=== PATIENT | female | born 1955 | race Caucasian/White ===

== ENCOUNTER 2017-09-05 08:52 | Outpatient (CLI) | payer MEDICARE ==
[2017-09-05] MEDS ORDERED: ISOVUE-370 76%-LOCM 1 ML ONE (11:07)
== END 2017-09-05 08:53 | disposition home or self-care (01) ==
LOC: BICCT 08:52
PROVIDERS: ATTEND Internal Medicine Cardiovascular Disease
DX: I65.01 Occlusion and stenosis of right vertebral artery (principal); I65.21 Occlusion and stenosis of right carotid artery; I70.8 Atherosclerosis of other arteries; I25.10 Atherosclerotic heart disease of native coronary artery without angina pectoris
CPT/HCPCS: 70498; 82565

== ENCOUNTER 2017-10-11 11:53 | Outpatient (CLI) | payer MEDICARE, MEDICAID ==
[2017-10-11] MEDS ORDERED: ISOVUE-370 76%-LOCM 1 ML ONE (16:39)
== END 2017-10-11 11:54 | disposition home or self-care (01) ==
LOC: BICCT 11:53
PROVIDERS: ATTEND Internal Medicine Cardiovascular Disease
DX: I70.213 Atherosclerosis of native arteries of extremities with intermittent claudication, bilateral legs (principal); I25.10 Atherosclerotic heart disease of native coronary artery without angina pectoris; K55.069 Acute infarction of intestine, part and extent unspecified; I70.1 Atherosclerosis of renal artery; I70.0 Atherosclerosis of aorta; I77.9 Disorder of arteries and arterioles, unspecified
CPT/HCPCS: 75635; 82565

== ENCOUNTER 2018-05-06 19:07 | Emergency (ER) | payer MEDICARE, MEDICAID ==
[~2018-05-06 19:07] MED LIST: ISOVUE-370 76%-LOCM 1 ML ONE
--- NOTE | 2018-05-06 20:30 | RAD ---
PORTABLE CHEST 05/06/18 PROVIDED CLINICAL HISTORY: Dyspnea. FINDINGS: Comparison 07/26/16. The cardiac and mediastinal silhouette is unchanged in appearance. Vascular calcification involves th e aortic arch. Right subclavian cardiac pacing device is again demonstrated with lead tips in similar positions. No focal consolidation, pleural fluid or pneumothorax apparent. IMPRESSION: No evidence for acute cardiopulmonary process. POS: DIANA
[2018-05-06 20:39] LABS: #Basophils 0.1 thou/uL (0.0-0.2); #Eosinphils 0.2 thou/uL (0.0-0.7); #Lymphocytes 2.7 thou/uL (1.20-3.40); #Monocytes 0.7 thou/uL (0.11-0.59); #Neutrophils 3.8 thou/uL (1.40-6.50); %Basophils 0.8 % (0.0-1.0); %Eosinophils 3.2 % (0.0-10.0); %Lymphocytes 35.9 % (21.0-51.0); %Monocytes 9.6 % (0.0-10.0); %Neutrophils 50.6 % (42.0-75.0); Hemoglobin 14.4 g/dL (12.0-16.0); Mean Corpuscular HGB CONC 33.6 g/dL (32.0-36.0); Mean Corpuscular Hemoglobin 32.2 pg (27.0-31.0); Mean Corpuscular Volume 95.9 fL (78.0-98.0); Mean Platelet Volume 6.3 fL (7.4-10.4); Platelet Count 176 thou/uL (130-400); RBC Distribution Width 11.8 % (11.5-14.5); Red Blood Cell (RBC) Count 4.46 mill/uL (4.20-5.40); White Blood Cell (WBC) Count 7.5 thou/uL (4.8-10.8)
[2018-05-06 20:52] LABS: ALT (SGPT) 60 U/L (8-55); AST (SGOT) 64 U/L (5-34); Albumin 3.4 g/dL (3.5-5.0); Alkaline Phosphatase 129 U/L (40-150); Anion Gap 8 mmol/L (10-20); BUN (Urea Nitrogen) 9 mg/dL (9.8-20.1); Bilirubin, Total 0.6 mg/dL (0.2-1.2); Calc. Creatinine Clearance 0 mL/min (70-130); Calcium 9.3 mg/dL (7.8-10.44); Carbon Dioxide 27 mmol/L (22-29); Chloride 106 mmol/L (98-107); Estimated GFR-MDRD 73; Globulin 4.2 g/dL (2.4-3.5); Glucose 99 mg/dL (70-105); Potassium 4.3 mmol/L (3.5-5.1); Protein, Total 7.6 g/dL (6.0-8.3); Sodium 137 mmol/L (136-145)
--- NOTE | 2018-05-06 21:24 | ULT ---
BILATERAL LOWER EXTREMITY VENOUS DOPPLER 05/06/18 PROVIDED CLINICAL HISTORY: Bilateral lower extremity pain. FINDINGS: Jean scale and color doppler sonography with spectral analysis was performed of the bilateral common femoral, femoral, popliteal, posterior tibial, greater saphenous and profunda femoral veins, demonstr ating a normal sonographic appearance to each. IMPRESSION: No sonographic evidence for lower extremity deep venous thrombosis. POS: EUGENIE
--- NOTE | 2018-05-06 21:35 | CT ---
CT PULMONARY ANGIOGRAM WITH IV CONTRAST AND 3D MIP RECONSTRUCTIONS 05/06/18 PROVIDED CLINICAL HISTORY: Shortness of breath and pain. FINDINGS: There is no evidence for central or segmental pulmonary embolus. Coronary stent material is seen. The lungs are free of significant opacity. The airway is patent and of normal caliber. No pleural fluid or pneumothorax apparent. No evidence for thoracic lymph node enlargement. The visualized portions of the upper abdomen demonstrate no acute process. Gallstones are seen. The osseous structures demonstr ate no concerning lytic or blastic lesions. IMPRESSION: 1. No evidence for central or segmental pulmonary embolus. 2. Cholelithiasis. POS: DIANA
== END 2018-05-06 22:40 | disposition home or self-care (01) ==
LOC: ERS 19:07
DX: R10.31 Right lower quadrant pain (principal); R10.32 Left lower quadrant pain; R06.00 Dyspnea, unspecified; I10 Essential (primary) hypertension; F17.210 Nicotine dependence, cigarettes, uncomplicated
CPT/HCPCS: 36415; 71045; 71275; 80053; 83880; 84484; 85025; 93005; 93970

== ENCOUNTER 2018-09-26 13:00 | Inpatient (IN) | payer MEDICARE, MEDICAID ==
[2018-09-26 15:50] LABS: Hemoglobin 14.7 g/dL (12.0-16.0); Mean Corpuscular HGB CONC 33.5 g/dL (32.0-36.0); Mean Corpuscular Hemoglobin 32.4 pg (27.0-31.0); Mean Corpuscular Volume 96.5 fL (78.0-98.0); Platelet Count 243 thou/uL (130-400); Red Blood Cell (RBC) Count 4.54 mill/uL (4.20-5.40); White Blood Cell (WBC) Count 9.1 thou/uL (4.8-10.8)
[2018-09-26 15:55] LABS: INR-International Normal Ratio 1.1; PTT 31.5 SEC (22.9-36.1); Prothrombin Time 14.1 SEC (12.0-14.7)
[2018-09-26 16:09] LABS: Anion Gap 14 mmol/L (10-20); BUN (Urea Nitrogen) 7 mg/dL (9.8-20.1); Calc. Creatinine Clearance 0 mL/min (70-130); Calcium 9.4 mg/dL (7.8-10.44); Carbon Dioxide 19 mmol/L (23-31); Chloride 105 mmol/L (98-107); Estimated GFR-MDRD 71; Glucose 78 mg/dL (80-115); Sodium 134 mmol/L (136-145)
[2018-09-29] MEDS ORDERED: Fentanyl 250 MCG/5 ML VIAL ONE (06:53)
[2018-09-29] MEDS ORDERED: Heparin 5,000 UNITS/ML VIAL ONE (06:58)
[2018-09-29] MEDS ORDERED: Protamine Sulfate 50 MG/5 ML VIAL ONE (06:58)
[2018-09-29] MEDS ORDERED: Midazolam HCl 2 mg/2 ml Vial ONE (07:12)
[2018-09-29] MEDS ORDERED: Fentanyl 100 MCG/2 ML VIAL ONE ×2 (10:50→11:30)
[2018-09-29] MEDS ORDERED: Promethazine HCl 25 MG/ML VIAL IM PRN ×2 (10:53→12:12)
[2018-09-29] MEDS ORDERED: Ondansetron HCl/PF 4 MG/2 ML Vial IVP PRN (10:53)
[2018-09-29] MEDS ORDERED: Promethazine HCl 25 MG/ML VIAL SLOW IVP PRN (10:53)
[2018-09-29] MEDS ORDERED: Nitroglycerin 50 MG/250 ML BOT 0 ML ONE (11:12)
[2018-09-29] MEDS ORDERED: hydrALAZINE 20 MG/ML VIAL ONE (11:15)
[2018-09-29] MEDS ORDERED: Ondansetron PF 4 MG/2 ML Vial IVP PRN (12:12)
[2018-09-29] MEDS ORDERED: D5 1/2 NS w/20 mEq KCL 1,000 ML IV SCH (12:12)
[2018-09-29] MEDS ORDERED: Promethazine HCl 25 MG/ML VIAL PR PRN (12:12)
[2018-09-29] MEDS ORDERED: Phenylephrine 10 MG/NS 250 ML 250 ML IVPB PRN (12:12)
[2018-09-29 12:14] VITALS: BMI 33.0
[2018-09-29] MEDS ORDERED: Acetaminophen 325 MG TAB PO PRN (12:15)
[2018-09-29] MEDS: Fentanyl 100 MCG/2 ML VIAL SLOW IVP PRN ×2 (13:07→20:17)
[2018-09-29] MEDS: Nitroglycerin 50 MG/250 ML BOT 250 ML IVPB PRN ×2 (13:13→22:03)
--- NOTE | 2018-09-29 15:26 | OP ---
DATE OF PROCEDURE: 09/29/2018 PREOPERATIVE DIAGNOSIS: Peripheral vascular disease with bilateral lower extremity rest pain. POSTOPERATIVE DIAGNOSIS: Peripheral vascular disease with bilateral lower extremity rest pain. PROCEDURE PERFORMED: Right common femoral to above knee popliteal artery bypass utilizing endoscopically harvested in situ greater saphenous vein. ANESTHESIA: General endotracheal - Dr. Ari Huynh. ESTIMATED BLOOD LOSS: Less than 100. DESCRIPTION OF PROCEDURE: After informed consent was obtained, the patient was brought to the operating room and placed supine position on the operating room table. Appropriate central line was placed, and general endotracheal anesthesia was induced. The right leg was prepped and draped in the usual sterile fashion. Using ultrasound, the greater saphenous vein was localized at the knee. Endoscopic harvesting technique was used to harvest the vein from groin down to mid calf. At this point, the vein divided, it was too small to be utilized. The vein was divided distally. A skin incision was made in the groin and common femoral artery was dissected free. The common profunda and superficial femoral arteries were circumferentially dissected to allow for clamping. The greater saphenous vein was then divided at the fossa ovalis and withdrawn back through the incision. The vein was then prepared for anastomosis. The branches were divided. The valves were then lysed. A skin incision was made at Ez's canal and popliteal artery, dissected free from surrounding tissues. The vein was then tunneled from our knee incision to the groin incision. The vein was flushed and easily flushed. The patient was systemically heparinized. An arteriotomy was performed in the common femoral artery just at the bifurcation. There was good antegrade flow through the common femoral artery and backbleeding from the profunda femoris. The saphenous vein was anastomosed to the common femoral artery with running 6-0 Prolene suture. Upon release of clamps, there was pulsatile flow through the graft. The graft was flushed with heparinized saline and clamped. The popliteal artery was clamped proximally and distally and an incision was made allowing for anastomosis. Saphenous vein was anastomosed to the popliteal artery with running 6-0 Prolene suture. Upon release of clamps, there was good pulsatile flow through the graft. Doppler signal was present both within the graft and the distal popliteal artery. There was good posterior tibial artery Doppler signal. The wounds were copiously irrigated. There was good hemostasis. Therefore, we did not reverse our heparin. The incisions were then closed in layers and Dermabond applied to the skin. The patient tolerated the procedure well, was awakened, extubated, and transferred to the recovery room in stable condition. Job ID: [id number]
[2018-09-29] MEDS: CEFAZOLIN 2 GM in Premix Bag 1 BAG IVPB SCH ×2 (15:39→22:39)
[2018-09-29] MEDS ORDERED: Lidocaine 1% PF 5 ML VIAL ONE (16:32)
[2018-09-29] MEDS ORDERED: PROPOFOL 200 MG/20 ML VIAL ONE (16:32)
[2018-09-29] MEDS ORDERED: Ondansetron PF 4 MG/2 ML Vial ONE (16:32)
[2018-09-29] MEDS ORDERED: Glycopyrrolate 0.2 MG/ML 5 ML SYRINGE ONE (16:32)
[2018-09-29] MEDS ORDERED: Dexamethasone 20 MG/5 ML VIAL ONE (16:32)
[2018-09-29] MEDS ORDERED: Vecuronium 10 MG VIAL ONE (16:32)
[2018-09-29] MEDS ORDERED: hydrALAZINE 20 MG/ML VIAL SLOW IVP PRN (17:10)
[2018-09-29] MEDS: traMADol HCl 50 MG TAB PO PRN (17:14)
--- NOTE | 2018-09-29 17:21 | CON ---
DATE OF CONSULTATION: HISTORY OF PRESENT ILLNESS: Monica Dawkins is a pleasant 63-year-old female. She has been seen here in the past, but has not been admitted since 2016. In September of 2015, she underwent cardiac catheterization, which showed three- vessel coronary artery disease with severe stenosis of the LAD. She had angioplasty and stent placed by Dr. Bhatti. The second obtuse marginal branch of the left circumflex, vessel was small. She had 50% right coronary stenosis. At that time three years ago, it was noted that she had claudication and severe peripheral vascular disease. The past records states that she has obstructive lung disease, but she says she has never been told that. She did quit smoking at the beginning of the year. She has undergone a right common femoral to above the knee popliteal artery bypass using greater saphenous vein. She says she is doing well at this time and has no complaints. PAST MEDICAL HISTORY: Remarkable for; 1. Coronary artery disease with an VA in 2007. 2. History of hypertension. 3. History of CVA x2 in the past. 4. History of pacemaker. 5. History of an appendectomy. 6. History of hip surgery. SOCIAL HISTORY: She smoked a pack a day for most of her adult life. As mentioned, she quit at the beginning of the year. She is not a drinker. She does not use drugs. FAMILY HISTORY: Positive for vascular disease. ALLERGIES: SHE HAS NO REPORTED DRUG ALLERGIES. REVIEW OF SYSTEMS: A 10-point review of systems otherwise negative. PHYSICAL EXAMINATION: GENERAL: She is in no distress. VITAL SIGNS: Blood pressure is 161/80, heart rate is 61, respiratory rate is 15 , and oximetry is 95. HEENT: Pupils are equal. Sclerae are anicteric. Extraocular movements are intact. NECK: Supple. No lymphadenopathy. LUNGS: Clear. HEART: Regular rhythm. S1 and S2 normal. ABDOMEN: Soft and nontender. EXTREMITIES: Without clubbing, cyanosis, or edema. Her feet are warm. LABORATORY DATA: White count 9.1 on the and hemoglobin was 14.7. There is no lab today. Electrolytes were unremarkable on the . IMPRESSION AND PLAN: 1. Status post femoral-popliteal bypass, clinically stable. 2. History of coronary artery disease with a left anterior descending stent in place, obtuse marginal diffuse disease and the 50% right coronary lesion on cardiac catheterization in 2016. 3. Long history of tobacco use, but no PFTs in the records documenting chronic obstructive pulmonary disease. 4. History of peripheral vascular disease and coronary artery disease with a myocardial infarction in the past and two strokes in the past. 5. History of hypertension. 6. History of pacemaker. She appears to be stable at this time. Spirometry could be done while she is here, once she is ambulatory. I will be happy to follow the other physicians caring for her. TIME SPENT: This is a 50-minute consult, 50% of the time spent on the unit coordinating care. Job ID: [id number] MTDD
[2018-09-29] MEDS: Ketorolac Tromethamine 30 MG/ML VIAL IVP SCH (18:28)
[2018-09-29] MEDS: hydrALAZINE 20 MG/ML VIAL SLOW IVP PRN (18:28)
[2018-09-29] MEDS: Acetaminophen 325 MG TAB PO PRN (19:15)
[2018-09-29] MEDS ORDERED: Carvedilol 3.125 MG TAB PO SCH (21:00)
[2018-09-29] MEDS ORDERED: Lisinopril 5 MG TAB PO SCH (21:00)
[2018-09-29] MEDS: Atorvastatin Calcium 40 MG TAB PO SCH (21:37)
[2018-09-29] MEDS ORDERED: Sodium Chloride 0.45% 500 ML IV SCH (23:45)
[2018-09-30] MEDS: Ketorolac Tromethamine 30 MG/ML VIAL IVP SCH ×4 (00:02→18:12)
[2018-09-30] MEDS ORDERED: Sodium Chloride 0.45% 1,000 ML IV SCH (01:45)
[2018-09-30] MEDS: Nitroglycerin 50 MG/250 ML BOT 250 ML IVPB PRN (02:30)
[2018-09-30] MEDS: hydrALAZINE 20 MG/ML VIAL SLOW IVP PRN ×2 (03:50→13:05)
[2018-09-30] MEDS: CEFAZOLIN 2 GM in Premix Bag 1 BAG IVPB SCH (06:48)
[2018-09-30] MEDS: Carvedilol 6.25 MG TAB PO SCH ×2 (07:33→20:38)
[2018-09-30] MEDS: Aspirin Chewable 81 MG TAB PO SCH (07:33)
[2018-09-30] MEDS: traMADol HCl 50 MG TAB PO PRN (07:34)
[2018-09-30] MEDS: Clopidogrel Bisulfate 75 MG TAB PO SCH (07:34)
--- NOTE | 2018-09-30 17:58 | PRG ---
DATE OF SERVICE: 09/30/2018 SUBJECTIVE: Ms. Dawkins is in no distress. She has no complaints. She says her leg feels fine. OBJECTIVE: VITAL SIGNS: She is afebrile. Blood pressure 135/73, heart rate 63, respiratory rate 18, oximetry is 95%. LUNGS: Clear. HEART: Regular rhythm. S1 and S2 normal. ABDOMEN: Soft and nontender. EXTREMITIES: Feet are warm. IMPRESSION: 1. Status post femoral-popliteal bypass, clinically stable. 2. History of coronary artery disease. 3. History of tobacco use with no documentation of proven chronic obstructive pulmonary disease, that is clinically stable. 4. Hypertension. 5. History of pacemaker. Hopefully, she will be granted to move out of Critical Care Unit to go home for too long. Job ID: [id number]
[2018-09-30] MEDS: Atorvastatin Calcium 40 MG TAB PO SCH (20:38)
[2018-09-30] MEDS: Acetaminophen 325 MG TAB PO PRN (20:47)
[2018-09-30] MEDS ORDERED: Lisinopril 10 MG TAB PO SCH (21:00)
[2018-10-01] MEDS: Ketorolac Tromethamine 30 MG/ML VIAL IVP SCH ×4 (00:28→17:37)
[2018-10-01] MEDS: traMADol HCl 50 MG TAB PO PRN ×2 (05:10→14:32)
[2018-10-01] MEDS: Aspirin Chewable 81 MG TAB PO SCH (08:10)
[2018-10-01] MEDS: Carvedilol 6.25 MG TAB PO SCH (08:11)
[2018-10-01] MEDS: Clopidogrel Bisulfate 75 MG TAB PO SCH (08:11)
[2018-10-01 14:23] VITALS: BP 134/77
[2018-10-01 17:04] VITALS: TEMP 97.9
--- NOTE | 2018-10-01 18:47 | PRG ---
DATE OF SERVICE: 10/01/2018 SUBJECTIVE: Ms. Dawkins says she is feeling well. She says she might be going home today. OBJECTIVE: VITAL SIGNS: She is afebrile. Blood pressure 143/82, heart rate 61, respiratory rate is 19. Intake and outputs, positive 330. LUNGS: Clear. HEART: Regular rhythm. ABDOMEN: Soft and nontender. EXTREMITIES: Without clubbing, cyanosis, or edema. IMPRESSION: 1. Status post femoral-popliteal bypass. 2. Long history of tobacco use. No clinical evidence of chronic obstructive pulmonary disease. I will be happy to see her in the future. Given that she is having no respiratory issues, there is no reason for me to see her as an outpatient in the near future. If she has a repeat hospitalization, I will be happy to see her. Job ID: [id number]
--- NOTE | 2018-10-02 11:34 | DIS ---
DATE OF ADMISSION: 09/29/2018 DATE OF DISCHARGE: 10/01/2018 DIAGNOSIS: Peripheral vascular disease. PROCEDURE: Right common femoral to above knee popliteal in situ vein bypass. DESCRIPTION OF HOSPITAL STAY: Ms. Dawkins had rest pain in the right foot. She underwent a right femoral to above knee popliteal artery bypass utilizing in situ greater saphenous vein. She tolerated procedure well. Her pain is completely resolved. She is currently walking without difficulty or claudication. She will be discharged to home to follow up with me in 2 weeks. DISCHARGE MEDICATIONS: Unchanged from her hospital admission. Job ID: [id number]
== END 2018-10-01 18:03 | disposition home or self-care (01) | DRG 254 ==
LOC: SURG A 09-29 05:58 → CCU 09-29 11:56
PROVIDERS: ADMIT Thoracic Surgery (Cardiothoracic Vascular Surgery); ATTEND Thoracic Surgery (Cardiothoracic Vascular Surgery)
PROC: 041K09L Bypass Right Femoral Artery to Popliteal Artery with Autologous Venous Tissue, Open Approach (ICD-10-PCS; principal; 2018-09-29)
PROC: 06BP0ZZ Excision of Right Saphenous Vein, Open Approach (ICD-10-PCS; 2018-09-29)
DX: I73.9 Peripheral vascular disease, unspecified (principal); J44.9 Chronic obstructive pulmonary disease, unspecified; I25.10 Atherosclerotic heart disease of native coronary artery without angina pectoris; I25.2 Old myocardial infarction; Z86.73 Personal history of transient ischemic attack (TIA), and cerebral infarction without residual deficits; Z95.0 Presence of cardiac pacemaker; Z90.49 Acquired absence of other specified parts of digestive tract; Z87.891 Personal history of nicotine dependence
CPT/HCPCS: 36415; 36416; 80048; 85027; 85610; 85730; 86850; 86900; 86901; 94640; J0360; J0690; J1100; J1642; J1644; J1885; J2001; J2250; J2405; J2704; J2720; J3010; J7620

== ENCOUNTER 2018-12-15 12:00 | Inpatient (IN) | payer MEDICARE, MEDICAID ==
[2018-12-16] MEDS ORDERED: ceFAZolin Sodium (SDC) 2 GM/100 ML BAG ONE ×2 (06:12→16:41)
[2018-12-16] MEDS ORDERED: Protamine Sulfate 50 MG/5 ML VIAL ONE (06:29)
[2018-12-16] MEDS ORDERED: Heparin 5,000 UNITS/ML VIAL ONE (06:29)
[2018-12-16] MEDS ORDERED: Fentanyl 100 MCG/2 ML VIAL ONE ×4 (06:34→13:12)
[2018-12-16] MEDS ORDERED: Midazolam HCl 2 mg/2 ml Vial ONE (06:34)
[2018-12-16] MEDS ORDERED: Ondansetron HCl/PF 4 MG/2 ML Vial IVP PRN (09:55)
--- NOTE | 2018-12-16 10:19 | OP ---
DATE OF PROCEDURE: 12/16/2018 PREOPERATIVE DIAGNOSIS: Peripheral vascular disease. POSTOPERATIVE DIAGNOSIS: Peripheral vascular disease. PROCEDURE PERFORMED: Left femoral to above knee popliteal artery bypass utilizing 8 mm ringed [place]. ANESTHESIA: General endotracheal. ESTIMATED BLOOD LOSS: 500. DESCRIPTION OF PROCEDURE: After consent was obtained, the patient was brought to the operating room, placed in supine position on the operating room table. Appropriate central line and monitors were placed, and general endotracheal anesthesia was induced. Left leg was prepped and draped in usual sterile fashion. A suprainguinal crease incision was made transversely. This was dissected down to the common femoral artery. Common femoral and profunda branches were carefully dissected free from the surrounding tissues. The above-knee popliteal artery was then exposed. Her vein had been deemed inadequate on ultrasound preoperatively. An 8 mm tunneler was passed from knee to groin and the graft tunneled. The patient was given 7500 units of heparin. After 3 minutes, common profunda and superficial femoral arteries were clamped and an incision was made on the common femoral artery. Graft was anastomosed to common femoral artery with running 5-0 Prolene suture. On release of clamps, there was good antegrade flow through the graft in a pulsatile fashion. The graft was clamped and flushed with heparinized saline. The graft was then sewn to the above-knee popliteal artery with running 5-0 Prolene suture. On re-establishment of flow, there was excellent Doppler signal distal to the graft that abated with graft occlusion. Protamine was administered. Hemostasis was ensured. Wounds were closed in layers. Dermabond applied to skin. The patient was then awakened, extubated, transferred to the recovery room in stable condition. Needle, sponge, and instrument counts were all reported as correct at the end of the procedure. Job ID: [id number]
[2018-12-16] MEDS ORDERED: Fentanyl 100 MCG/2 ML VIAL SLOW IVP PRN (14:05)
[2018-12-16] MEDS ORDERED: Acetaminophen 325 MG TAB PO PRN (14:05)
[2018-12-16] MEDS ORDERED: Promethazine HCl 25 MG/ML VIAL IM PRN (14:05)
[2018-12-16] MEDS ORDERED: Ondansetron PF 4 MG/2 ML Vial IVP PRN (14:05)
[2018-12-16] MEDS ORDERED: hydrALAZINE 20 MG/ML VIAL SLOW IVP PRN (14:05)
[2018-12-16 18:07] VITALS: BMI 32.0
[2018-12-16] MEDS: CEFAZOLIN 2 GM in Premix Bag 1 BAG IVPB SCH ×2 (19:02→22:36)
[2018-12-16] MEDS: D5 1/2 NS w/20 mEq KCL 1,000 ML IV SCH (19:09)
[2018-12-16] MEDS: traMADol HCl 50 MG TAB PO PRN (19:16)
[2018-12-16] MEDS: Atorvastatin Calcium 40 MG TAB PO SCH (20:48)
[2018-12-16] MEDS: Lisinopril 5 MG TAB PO SCH (20:49)
[2018-12-16] MEDS: Carvedilol 6.25 MG TAB PO SCH (20:50)
[2018-12-17] MEDS: traMADol HCl 50 MG TAB PO PRN ×3 (05:42→20:44)
[2018-12-17] MEDS: D5 1/2 NS w/20 mEq KCL 1,000 ML IV SCH ×2 (05:43→18:04)
[2018-12-17] MEDS: CEFAZOLIN 2 GM in Premix Bag 1 BAG IVPB SCH (05:46)
[2018-12-17 06:25] LABS: #Lymphocytes 2.1 thou/uL (1.20-3.40); #Monocytes 0.8 thou/uL (0.11-0.59); #Neutrophils 7.8 thou/uL (1.40-6.50); %Basophils 0.3 % (0.0-1.0); %Lymphocytes 19.7 % (21.0-51.0); %Monocytes 7.5 % (0.0-10.0); %Neutrophils 72.5 % (42.0-75.0); Hemoglobin 12.2 g/dL (12.0-16.0); Mean Corpuscular HGB CONC 33.4 g/dL (32.0-36.0); Mean Corpuscular Hemoglobin 32.2 pg (27.0-31.0); Mean Corpuscular Volume 96.4 fL (78.0-98.0); Mean Platelet Volume 8.6 fL (7.4-10.4); Platelet Count 154 thou/uL (130-400); RBC Distribution Width 12.4 % (11.5-14.5); Red Blood Cell (RBC) Count 3.78 mill/uL (4.20-5.40); White Blood Cell (WBC) Count 10.8 thou/uL (4.8-10.8)
[2018-12-17] MEDS: Clopidogrel Bisulfate 75 MG TAB PO SCH (09:08)
[2018-12-17] MEDS: Aspirin Chewable 81 MG TAB PO SCH (09:08)
[2018-12-17] MEDS: Carvedilol 6.25 MG TAB PO SCH ×2 (09:09→20:45)
[2018-12-17] MEDS ORDERED: traMADol HCl 50 MG TAB ONE (14:36)
[2018-12-17] MEDS: Atorvastatin Calcium 40 MG TAB PO SCH (20:45)
[2018-12-17] MEDS: Lisinopril 5 MG TAB PO SCH (20:45)
[2018-12-18] MEDS: D5 1/2 NS w/20 mEq KCL 1,000 ML IV SCH ×2 (01:05→11:25)
[2018-12-18] MEDS: traMADol HCl 50 MG TAB PO PRN ×2 (04:31→09:13)
[2018-12-18 05:13] LABS: #Basophils 0.1 thou/uL (0.0-0.2); #Eosinphils 0.1 thou/uL (0.0-0.7); #Lymphocytes 4.8 thou/uL (1.20-3.40); #Monocytes 1.2 thou/uL (0.11-0.59); #Neutrophils 6.5 thou/uL (1.40-6.50); %Basophils 0.6 % (0.0-1.0); %Lymphocytes 38.2 % (21.0-51.0); %Monocytes 9.1 % (0.0-10.0); %Neutrophils 51.1 % (42.0-75.0); Hemoglobin 12.4 g/dL (12.0-16.0); Mean Corpuscular HGB CONC 31.7 g/dL (32.0-36.0); Mean Corpuscular Hemoglobin 30.8 pg (27.0-31.0); Mean Platelet Volume 8.6 fL (7.4-10.4); Platelet Count 162 thou/uL (130-400); RBC Distribution Width 12.7 % (11.5-14.5); Red Blood Cell (RBC) Count 4.02 mill/uL (4.20-5.40); White Blood Cell (WBC) Count 12.7 thou/uL (4.8-10.8)
--- NOTE | 2018-12-18 07:02 | DIS ---
DATE OF ADMISSION: 12/16/2018 DATE OF DISCHARGE: 12/18/2018 DIAGNOSIS: Peripheral vascular disease. PROCEDURE: Left femoral to above knee popliteal artery bypass utilizing 8 mm ringed [place]. DESCRIPTION OF HOSPITAL STAY: Ms. Dawkins is a 63-year-old woman, who was brought in for an elective bypass. She has done well postoperatively with no current complaints. Her leg rest pain has completely resolved. She is ambulatory in her usual state. 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 At the time of discharge, she is ambulatory, tolerating regular diet, having good bowel and bladder function. Incisions are clean and dry without evidence of infection. DISCHARGE MEDICATIONS: Unchanged from her home regimen. Job ID: [id number]
[2018-12-18 07:16] VITALS: TEMP 97.7
[2018-12-18] MEDS: Carvedilol 6.25 MG TAB PO SCH (09:13)
[2018-12-18] MEDS: Clopidogrel Bisulfate 75 MG TAB PO SCH (09:13)
[2018-12-18] MEDS: Aspirin Chewable 81 MG TAB PO SCH (09:13)
[2018-12-18 09:55] VITALS: BP 140/76
== END 2018-12-18 14:36 | disposition home or self-care (01) | DRG 254 ==
LOC: SURG A 12-16 05:27 → IMCU/EMU 12-16 17:59
PROVIDERS: ADMIT Thoracic Surgery (Cardiothoracic Vascular Surgery); ATTEND Thoracic Surgery (Cardiothoracic Vascular Surgery)
PROC: 041L0JN Bypass Left Femoral Artery to Posterior Tibial Artery with Synthetic Substitute, Open Approach (ICD-10-PCS; principal; 2018-12-16)
DX: I73.9 Peripheral vascular disease, unspecified (principal); I10 Essential (primary) hypertension; J44.9 Chronic obstructive pulmonary disease, unspecified; I25.10 Atherosclerotic heart disease of native coronary artery without angina pectoris; Z86.73 Personal history of transient ischemic attack (TIA), and cerebral infarction without residual deficits; Z98.890 Other specified postprocedural states; Z79.899 Other long term (current) drug therapy; Z79.82 Long term (current) use of aspirin; I25.2 Old myocardial infarction
CPT/HCPCS: 36415; 71046; 80048; 85025; 85027; 86850; 86900; 86901; 93005; 93010; J0690; J1642; J1644; J2250; J2720; J3010

== ENCOUNTER 2018-12-15 14:05 | Outpatient (CLI) | payer MEDICARE, MEDICAID ==
--- NOTE | 2018-09-26 15:45 | RAD ---
RADIOGRAPH CHEST 2 VIEW: DATE: 09/26/2018 HISTORY: Preoperative clearance for 63-year-old female FINDINGS: The thoracic aorta is tortuous and ectatic. There is no evidence of airspace density, pulmonary edema , or pneumothorax. There is no cardiomegaly or pleural effusion. Right subclavian dual lead transvenous permanent pacemaker with lead tips in the vicinity of right atrial appendage and right ve ntricle. IMPRESSION: 1) No acute cardiopulmonary findings. 2) ectasia of thoracic aorta. 3) pacemaker
--- NOTE | 2018-10-06 18:47 | EKG ---
Test Reason : Blood Pressure : / mmHG Vent. Rate : 061 BPM Atrial Rate : 061 BPM P-R Int : 152 ms QRS Dur : 078 ms QT Int : 440 ms P-R-T Axes : 070 004 013 degrees QTc Int : 442 ms Electronic atrial pacemaker When compared with ECG of 06-MAY-2018 19:49, Electronic atrial pacemaker has replaced Sinus rhythm Confirmed by BETTIE MCCABE (2) on 10/06/2018 6:46:57 PM Referred By: JENNIFER Confirmed By:BETTIE MCCABE
[2018-12-15 15:05] LABS: Hemoglobin 14.8 g/dL (12.0-16.0); Mean Corpuscular Hemoglobin 32.5 pg (27.0-31.0); Mean Corpuscular Volume 95.7 fL (78.0-98.0); Mean Platelet Volume 8.2 fL (7.4-10.4); Platelet Count 203 thou/uL (130-400); RBC Distribution Width 12.6 % (11.5-14.5); Red Blood Cell (RBC) Count 4.55 mill/uL (4.20-5.40); White Blood Cell (WBC) Count 7.1 thou/uL (4.8-10.8)
[2018-12-15 15:21] LABS: Anion Gap 11 mmol/L (10-20); BUN (Urea Nitrogen) 8 mg/dL (9.8-20.1); Calc. Creatinine Clearance 0 mL/min (70-130); Carbon Dioxide 22 mmol/L (23-31); Chloride 108 mmol/L (98-107); Estimated GFR-MDRD 80; Glucose 83 mg/dL (80-115); Potassium 3.8 mmol/L (3.5-5.1); Sodium 137 mmol/L (136-145)
== END 2018-12-15 14:06 | disposition home or self-care (01) ==
LOC: LABBT 14:05
PROVIDERS: ATTEND Thoracic Surgery (Cardiothoracic Vascular Surgery)
DX: Z01.818 Encounter for other preprocedural examination (principal); I73.9 Peripheral vascular disease, unspecified; I77.810 Thoracic aortic ectasia; Z95.0 Presence of cardiac pacemaker
CPT/HCPCS: 71046; 80048; 85027; 86850; 86900; 86901; 93005; 93010